=== PATIENT | male | born 1940 | race African-American/Black ===

== ENCOUNTER 2019-11-16 23:13 | Inpatient (IN) | payer OTHER ==
[~2019-11-16] VITALS: Ht 182.9 cm; Wt 86.7 kg
[2019-11-17] MEDS ORDERED: IPRATROPIUM BROMIDE (0.02%) 0.5MG/2.5ML NEB HHN STA (00:01)
[2019-11-17] MEDS ORDERED: ONDANSETRON HCL 4MG/2ML INJ IV STA (00:01)
[2019-11-17] MEDS ORDERED: ACETAMINOPHEN 325MG TABLET PO STA (00:01)
[2019-11-17] MEDS ORDERED: ALBUTEROL (0.083%) 2.5MG/3ML NEB HHN STA (00:01)
[2019-11-17] MEDS ORDERED: AZITHROMYCIN 500 MG in DEXT 5% WATER 250 ML IV ONE (00:15)
[2019-11-17] MEDS ORDERED: CEFTRIAXONE 1 G PREMIX 50 ML IV ONE (00:15)
[2019-11-17 00:33] LABS: BASOPHILS % 0.2 % (0.0-2.0); EOSINOPHILS % 0.5 % (0.0-5.0); HEMATOCRIT. 32.6 % (42.0-52.0); HEMOGLOBIN. 10.5 g/dL (14.0-18.0); LYMPHOCYTES % 10.1 % (20.0-50.0); MEAN CORPUSCULAR HEMOGLOBIN 30.9 pg (28.0-32.0); MEAN CORPUSCULAR VOLUME 96.2 fL (80.0-94.0); MEAN PLATELET VOLUME 10.3 fl (7.4-10.4); MONOCYTES % 6.5 % (2.0-8.0); NEUTROPHILS % 82.7 % (40.0-76.0); PLATELET 100 x1000/uL (130-400); RED BLOOD CELL COUNT 3.39 mill/uL (4.7-6.1); RED CELL DISTRIBUTION WIDTH 18.7 % (11.6-14.6)
[2019-11-17 00:37] LABS: CHLORIDE 103 mEq/L (98-107)
[2019-11-17 00:56] LABS: PROTHROMBIN TIME 10.7 sec (9.6-11.0)
[2019-11-17 01:21] LABS: BG BASE EXCESS 2.9 mmol/L (-2.0-2.0); BG CARBOXYHEMOGLOBIN 0.2 % (0.5-1.5); BG DEOXYHEMOGLOBIN 5.6 % (0.0-5.0); BG FRACTION INSPIRED OXYGEN 32; BG HCO3 ACT 29.7 mmol/L (22.0-26.0); BG OXYGEN SATURATION 94.4 % (92.0-98.5); BG OXYHEMOGLOBIN 94.2 % (94.0-97.0); BG PCO2 56.4 mmHg (35.0-45.0); BG PO2 76.6 mmHg (75.0-100.0); BG SAMPLE SITE RIGHT RADIAL; BG TOTAL HEMOGLOBIN 11.6 g/dL (12.0-18.0); BG VENT MODE NASAL CANNULA
[2019-11-17] MEDS ORDERED: ALBUTEROL 6.7GM HFA INHALER ORI PRN (03:45)
[2019-11-17] MEDS ORDERED: ONDANSETRON HCL 4MG/2ML INJ IV PRN (03:45)
[2019-11-17] MEDS ORDERED: GUAIFENESIN 200MG/10ML SUGAR FREE UDC PO PRN (03:45)
[2019-11-17] MEDS ORDERED: DIPHENHYDRAMINE 50MG/ML VIAL IV PRN (03:45)
[2019-11-17] MEDS ORDERED: CEFTRIAXONE 1 G PREMIX 50 ML IV SCH (03:45)
[2019-11-17] MEDS ORDERED: CLONIDINE 0.1MG TABLET PO PRN (03:45)
[2019-11-17] MEDS ORDERED: ZOLPIDEM TARTRATE 5MG TABLET PO PRN (03:45)
[2019-11-17] MEDS ORDERED: MAGNESIUM/ALUMINUM HYDROXIDE/SIMETHICONE 30ML UDC PO PRN (03:45)
[2019-11-17] MEDS ORDERED: ACETAMINOPHEN 325MG TABLET PO PRN ×2 (03:45)
[2019-11-17] MEDS ORDERED: DEXAMETHASONE 10 MG/ML VIAL IV SCH (09:00)
[2019-11-17] MEDS: FAMOTIDINE 20MG TABLET PO SCH (09:04)
[2019-11-17] MEDS: DEXAMETHASONE 4MG TABLET PO SCH (09:04)
[2019-11-17] MEDS: SODIUM CHLORIDE 0.9% INJ 3ML FLUSH IVF SCH ×2 (14:06→22:00)
[2019-11-17] MEDS ORDERED: DEXTROSE 50% WATER 50ML SYRINGE IV PRN (19:45)
[2019-11-17] MEDS ORDERED: CEFTRIAXONE 1,000 MG in DEXTROSE 5% WATER 50 ML IV SCH ×2 (20:30→23:30)
[2019-11-17] MEDS ORDERED: AZITHROMYCIN 500 MG in DEXT 5% WATER 250 ML IV SCH (21:00)
[2019-11-17 22:15] VITALS: BP 150/93
[2019-11-17] MEDS: BLOOD SUGAR DIAGNOSTIC STRIP TEST SCH (23:00)
[2019-11-18] VITALS: BP 143/90
[2019-11-18] MEDS ORDERED: AZITHROMYCIN 500 MG in DEXT 5% WATER 250 ML IV NR ×2
[2019-11-18 04:00] VITALS: BP 130/80
[2019-11-18] MEDS ORDERED: ATOR10TA69 PO (04:21)
[2019-11-18] MEDS ORDERED: POTA10TA2 PO (04:21)
[2019-11-18] MEDS ORDERED: AMLO2.5T45 PO (04:21)
[2019-11-18] MEDS ORDERED: CLOP75TA33 PO (04:21)
[2019-11-18] MEDS ORDERED: ISOS60TA4 PO (04:21)
[2019-11-18] MEDS ORDERED: ALLO300T2 PO (04:21)
[2019-11-18] MEDS ORDERED: FURO40TA5 MT (04:21)
[2019-11-18] MEDS ORDERED: CARV25TA47 PO (04:21)
[2019-11-18] MEDS: SODIUM CHLORIDE 0.9% INJ 3ML FLUSH IVF SCH ×3 (06:03→21:06)
[2019-11-18] MEDS: BLOOD SUGAR DIAGNOSTIC STRIP TEST SCH ×3 (06:49→21:02)
[2019-11-18] MEDS: INSULIN LISPRO 100 UNITS/ML SUBCUT SCH ×3 (06:50→21:03)
[2019-11-18 08:00] VITALS: BP 131/85
[2019-11-18] MEDS: DEXAMETHASONE 4MG TABLET PO SCH (09:27)
[2019-11-18] MEDS: FAMOTIDINE 20MG TABLET PO SCH (10:11)
[2019-11-18] MEDS ORDERED: IPRATROPIUM/ALBUTEROL 0.5-3(2.5)MG/3ML NEB HHN PRN (15:00)
[2019-11-18] MEDS ORDERED: POTASSIUM CHLORIDE 20MEQ TABLET SR PO SCH (15:15)
[2019-11-18] MEDS ORDERED: FUROSEMIDE 40MG/4ML VIAL IVP SCH (15:15)
[2019-11-18 16:00] VITALS: BP 141/81
[2019-11-18] MEDS ORDERED: BUDESONIDE 0.5MG/2ML NEB HHN SCH (16:00)
[2019-11-18] MEDS ORDERED: IPRATROPIUM/ALBUTEROL 0.5-3(2.5)MG/3ML NEB HHN SCH (18:00)
[2019-11-18 20:00] VITALS: BP 120/70
[2019-11-18] MEDS ORDERED: CARVEDILOL 6.25 MG TABLET PO SCH (21:00)
[2019-11-18] MEDS ORDERED: ATORVASTATIN CALCIUM 10MG TABLET PO SCH (21:00)
[2019-11-18 21:24] VITALS: BP 120/70
[2019-11-18] MEDS ORDERED: NITROGLYCERIN OINT 1GM/INCH UDPKT TD SCH (22:00)
[2019-11-19] MEDS ORDERED: AZITHROMYCIN 250 MG in DEXT 5% WATER 250 ML IV SCH (06:00)
[2019-11-19] MEDS ORDERED: CLOPIDOGREL 75MG TABLET PO SCH (09:00)
[2019-11-19] MEDS ORDERED: AMLODIPINE 2.5MG TABLET PO SCH (09:00)
== END 2019-11-18 22:26 | disposition short-term general hospital (02) | DRG 190 ==
LOC: ER 23:29 → 7WST 11-17 02:07 → ENRESERV 11-17 20:07 → 8WST 11-18 11:23
PROVIDERS: ADMIT Internal Medicine; ATTEND Internal Medicine
DX: J44.0 Chronic obstructive pulmonary disease with (acute) lower respiratory infection (principal); J18.9 Pneumonia, unspecified organism; J96.90 Respiratory failure, unspecified, unspecified whether with hypoxia or hypercapnia; I50.20 Unspecified systolic (congestive) heart failure; M10.9 Gout, unspecified; E11.9 Type 2 diabetes mellitus without complications; I11.0 Hypertensive heart disease with heart failure; Z20.828 Contact with and (suspected) exposure to other viral communicable diseases; J44.9 Chronic obstructive pulmonary disease, unspecified; Z86.73 Personal history of transient ischemic attack (TIA), and cerebral infarction without residual deficits; Z99.81 Dependence on supplemental oxygen
CPT/HCPCS: 36415; 36600; 71045; 80053; 82375; 82728; 82805; 82962; 83036; 83605; 83615; 84145; 84484; 85025; 86140; 87635; 93005; 94640; 99291; J0456; J0696; J1815; J1940; J2405; J7060; J8540

== ENCOUNTER 2022-10-26 23:54 | Inpatient (IN) | payer OTHER ==
[~2022-10-26] VITALS: Ht 167.6 cm; Wt 71.7 kg
[~2022-10-26 23:54] MED LIST: ALBU18HF2 IH; ALLO300T2 PO; AMLO5TAB88 PO; ASPI-1497 PO; CLOP75TA33 PO; FURO40TA5 MT; ISOS60TA76 PO; LIP40 PO; MED4 PO; POTA10TA2 PO
[2022-10-27] VITALS (13 sets, daily range): BP systolic 118–144; BP diastolic 75–96; PULSE 76–87; RESP 16–25; TEMP 97.3–98; O2SAT 98–100
[2022-10-27] MEDS ORDERED: IPRATROPIUM BROMIDE (0.02%) 0.5MG/2.5ML NEB HHN STA (00:44)
[2022-10-27] MEDS ORDERED: ALBUTEROL (0.083%) 2.5MG/3ML NEB HHN STA (00:44)
[2022-10-27] MEDS ORDERED: METHYLPREDNISOLONE SOD SUCC 125MG/2ML (ACT-O-VIAL) IV STA (00:44)
[2022-10-27] MEDS ORDERED: MAGNESIUM 2 G PREMIX 50 ML IV ONE (00:45)
[2022-10-27] MEDS ORDERED: CEFTRIAXONE 1GM PREMIX 50 ML IV ONE (02:00)
[2022-10-27] MEDS: AZITHROMYCIN 500 MG in DEXT 5% WATER 250 ML IV SCH ×2 (02:00→06:33)
[2022-10-27 02:22] LABS: BG BASE EXCESS 6.4 mmol/L (-2.0-2.0); BG CARBOXYHEMOGLOBIN 0.8 % (0.5-1.5); BG DEOXYHEMOGLOBIN 0.4 % (0.0-5.0); BG FRACTION INSPIRED OXYGEN 100; BG HCO3 ACT 33.4 mmol/L (22.0-26.0); BG METHEMOGLOBIN 0.3 % (0.0-1.5); BG OXYGEN SATURATION 99.6 % (92.0-98.5); BG OXYHEMOGLOBIN 98.5 % (94.0-97.0); BG PCO2 58.8 mmHg (35.0-45.0); BG PH 7.372 (7.350-7.450); BG PO2 240.6 mmHg (75.0-100.0); BG SAMPLE SITE RIGHT RADIAL; BG VENT MODE MASK - NRB
[2022-10-27 02:27] LABS: HEMATOCRIT. 33.9 % (42.0-52.0); HEMOGLOBIN. 10.7 g/dL (14.0-18.0); MEAN CORPUSCULAR HEMOGLOBIN 30.4 pg (28.0-32.0); MEAN CORPUSCULAR VOLUME 96.2 fL (80.0-94.0); RED BLOOD CELL COUNT 3.52 mill/uL (4.7-6.1); RED CELL DISTRIBUTION WIDTH 17.4 % (11.6-14.6)
[2022-10-27 02:32] LABS: CHLORIDE 105 mEq/L (98-107)
[2022-10-27] MEDS ORDERED: ASPIRIN 325MG EC TABLET PO NR (03:00)
[2022-10-27] MEDS ORDERED: FUROSEMIDE 40MG/4ML VIAL IVP NR (03:00)
[2022-10-27 03:04] LABS: PLATELET 118 x1000/uL (130-400)
[2022-10-27] MEDS ORDERED: IPRATROPIUM/ALBUTEROL 0.5-3(2.5)MG/3ML NEB HHN ONE (03:15)
[2022-10-27] MEDS ORDERED: CEFTRIAXONE 1GM PREMIX 50 ML IV NR (06:15)
[2022-10-27] MEDS ORDERED: ONDANSETRON HCL 4MG/2ML INJ IV PRN (08:45)
[2022-10-27] MEDS ORDERED: GUAIFENESIN 200MG/10ML SUGAR FREE UDC PO PRN (08:45)
[2022-10-27] MEDS ORDERED: DOCUSATE SODIUM 100MG CAPSULE PO PRN (08:45)
[2022-10-27] MEDS ORDERED: CLONIDINE 0.1MG TABLET PO PRN (08:45)
[2022-10-27] MEDS ORDERED: KETOROLAC 15MG/ML VIAL IV PRN ×2 (08:45→17:00)
[2022-10-27] MEDS ORDERED: ACETAMINOPHEN 325MG TABLET PO PRN ×2 (08:45)
[2022-10-27] MEDS ORDERED: NITROGLYCERIN 0.4MG TABLET SL SL PRN (08:45)
[2022-10-27] MEDS ORDERED: IPRATROPIUM/ALBUTEROL 0.5-3(2.5)MG/3ML NEB NEB PRN (08:45)
[2022-10-27] MEDS ORDERED: MAGNESIUM/ALUMINUM HYDROXIDE/SIMETHICONE 30ML UDC PO PRN (08:45)
[2022-10-27] MEDS ORDERED: FAMOTIDINE 20MG TABLET PO SCH (09:00)
[2022-10-27] MEDS ORDERED: ASPIRIN 325MG EC TABLET PO SCH (09:00)
[2022-10-27 09:15] LABS: PLATELET ESTIMATE SLIGHTLY DECREASED
[2022-10-27] MEDS: FAMOTIDINE 20MG TABLET PO SCH (09:45)
[2022-10-27] MEDS: FUROSEMIDE 20MG/2ML VIAL IVP SCH ×2 (09:45→21:19)
[2022-10-27] MEDS: ASCORBIC ACID 500 MG TABLET PO SCH ×2 (09:45→21:19)
[2022-10-27] MEDS: GUAIFENESIN 600MG ER TABLET PO SCH ×2 (09:45→21:19)
[2022-10-27] MEDS: ZINC SULFATE 220 MG ( 50 ) CAPSULE PO SCH (09:45)
[2022-10-27] MEDS ORDERED: LEVOFLOXACIN 500MG PREMIX 100 ML IV SCH (10:00)
[2022-10-27] MEDS: CLOPIDOGREL 75MG TABLET PO SCH (10:57)
[2022-10-27] MEDS: ENOXAPARIN 30MG/0.3ML SYR SUBCUT SCH (11:45)
[2022-10-27 12:26] LABS: T4 FREE 1.09 ng/dL (0.76-1.46)
[2022-10-27] MEDS: IPRATROPIUM/ALBUTEROL 0.5-3(2.5)MG/3ML NEB HHN SCH ×4 (12:45→20:48)
[2022-10-27] MEDS: METHYLPREDNISOLONE SOD SUCC 125MG VIAL IV SCH ×2 (14:08→21:20)
[2022-10-27 15:22] LABS: CREATINE KINASE 76 IU/L (39-308); CREATINE KINASE MB FRACTION < 1.0 ng/mL (0.5-3.6)
[2022-10-27] MEDS: BUDESONIDE 0.5MG/2ML NEB HHN SCH (16:43)
[2022-10-27] MEDS: SPIRONOLACTONE 25MG TABLET PO SCH (17:24)
[2022-10-27 19:02] LABS: PHOSPHORUS 3.6 mg/dL (2.5-4.9)
[2022-10-27] MEDS ORDERED: ZOLPIDEM TARTRATE 5MG TABLET PO PRN (21:00)
[2022-10-27] MEDS: ATORVASTATIN CALCIUM 40MG TABLET PO SCH (21:19)
[2022-10-28] VITALS (17 sets, daily range): BP systolic 116–150; BP diastolic 61–98; PULSE 78–95; RESP 6–24; TEMP 96.1–98; O2SAT 98–100
[2022-10-28] MEDS: IPRATROPIUM/ALBUTEROL 0.5-3(2.5)MG/3ML NEB HHN SCH ×6 (00:40→20:51)
[2022-10-28 00:46] LABS: CREATINE KINASE MB FRACTION 1.4 ng/mL (0.5-3.6)
[2022-10-28 05:27] LABS: HEMATOCRIT. 28.1 % (42.0-52.0); MEAN CORPUSCULAR HEMOGLOBIN 30.1 pg (28.0-32.0); MEAN CORPUSCULAR VOLUME 94.2 fL (80.0-94.0); MEAN PLATELET VOLUME 9.8 fl (7.4-10.4); PLATELET 107 x1000/uL (130-400); RED BLOOD CELL COUNT 2.98 mill/uL (4.7-6.1); RED CELL DISTRIBUTION WIDTH 17.2 % (11.6-14.6)
[2022-10-28] MEDS: SPIRONOLACTONE 25MG TABLET PO SCH (05:30)
[2022-10-28] MEDS: METHYLPREDNISOLONE SOD SUCC 125MG VIAL IV SCH (05:31)
[2022-10-28 05:34] LABS: CHLORIDE 102 mEq/L (98-107)
[2022-10-28 05:40] LABS: PHOSPHORUS 3.6 mg/dL (2.5-4.9)
[2022-10-28 07:34] LABS: PLATELET ESTIMATE NORMAL
[2022-10-28] MEDS: LEVOFLOXACIN 250MG PREMIX 50 ML IV SCH (08:44)
[2022-10-28] MEDS: ASPIRIN 81MG EC TABLET PO SCH (08:45)
[2022-10-28] MEDS: ASCORBIC ACID 500 MG TABLET PO SCH (08:45)
[2022-10-28] MEDS: CLOPIDOGREL 75MG TABLET PO SCH (08:45)
[2022-10-28] MEDS: GUAIFENESIN 600MG ER TABLET PO SCH (08:45)
[2022-10-28] MEDS: ZINC SULFATE 220 MG ( 50 ) CAPSULE PO SCH (08:45)
[2022-10-28] MEDS: ENOXAPARIN 30MG/0.3ML SYR SUBCUT SCH (08:45)
[2022-10-28] MEDS: FUROSEMIDE 40MG/4 ML UDC PO SCH (08:50)
[2022-10-28] MEDS: BUDESONIDE 0.5MG/2ML NEB HHN SCH ×2 (08:56→20:51)
[2022-10-28] MEDS ORDERED: AZITHROMYCIN 500 MG in DEXT 5% WATER 250 ML IV SCH (09:00)
[2022-10-28] MEDS ORDERED: AMLODIPINE 5MG TABLET PO SCH (09:00)
[2022-10-28 10:54] LABS: BG BASE EXCESS 1.3 mmol/L (-2.0-2.0); BG CARBOXYHEMOGLOBIN 0.3 % (0.5-1.5); BG DEOXYHEMOGLOBIN 2.2 % (0.0-5.0); BG FRACTION INSPIRED OXYGEN 34; BG HCO3 ACT 26.5 mmol/L (22.0-26.0); BG METHEMOGLOBIN 0.3 % (0.0-1.5); BG OXYGEN SATURATION 97.8 % (92.0-98.5); BG OXYHEMOGLOBIN 97.2 % (94.0-97.0); BG PCO2 44.1 mmHg (35.0-45.0); BG PH 7.396 (7.350-7.450); BG PO2 110.7 mmHg (75.0-100.0); BG SAMPLE SITE RIGHT BRACHIAL; BG TOTAL HEMOGLOBIN 10.1 g/dL (12.0-18.0); BG VENT MODE NASAL CANNULA
[2022-10-28 13:19] LABS: *AMPHETAMINES SCREEN URINE NEGATIVE (NEGATIVE); *BARBITURATES SCREEN URINE NEGATIVE (NEGATIVE); *BENZODIAZEPINES SCREEN URINE NEGATIVE (NEGATIVE); *COCAINE SCREEN URINE NEGATIVE (NEGATIVE); CANNABINOID URINE SCREEN NEGATIVE (NEGATIVE); METHADONE URINE SCREEN NEGATIVE (NEGATIVE); OPIATES URINE SCREEN NEGATIVE (NEGATIVE); PHENCYCLIDINE URINE SCREEN NEGATIVE (NEGATIVE)
[2022-10-28] MEDS ORDERED: ACETYLCYSTEINE 200MG/ML 20% VIAL 4ML PO SCH (21:00)
[2022-10-28] MEDS ORDERED: METHYLPREDNISOLONE SOD SUCC 40MG VIAL IV SCH (21:00)
[2022-10-29] VITALS (15 sets, daily range): BP systolic 112–146; BP diastolic 63–91; PULSE 77–94; RESP 15–24; TEMP 96.4–98; O2SAT 96–100
[2022-10-29] MEDS: IPRATROPIUM/ALBUTEROL 0.5-3(2.5)MG/3ML NEB HHN SCH ×6 (00:21→21:05)
[2022-10-29] MEDS: APIXABAN 2.5 MG TABLET PO SCH ×2 (00:35→10:30)
[2022-10-29] MEDS: ASCORBIC ACID 500 MG TABLET PO SCH ×3 (00:38→21:02)
[2022-10-29] MEDS: GUAIFENESIN 600MG ER TABLET PO SCH ×3 (00:38→20:56)
[2022-10-29] MEDS: ATORVASTATIN CALCIUM 40MG TABLET PO SCH ×2 (00:38→20:56)
[2022-10-29 05:42] LABS: HEMATOCRIT. 28.4 % (42.0-52.0); HEMOGLOBIN. 9.3 g/dL (14.0-18.0); MEAN CORPUSCULAR VOLUME 94.5 fL (80.0-94.0); MEAN PLATELET VOLUME 10.2 fl (7.4-10.4); PLATELET 101 x1000/uL (130-400); RED CELL DISTRIBUTION WIDTH 17.2 % (11.6-14.6)
[2022-10-29] MEDS: BUDESONIDE 0.5MG/2ML NEB HHN SCH ×2 (08:27→21:05)
[2022-10-29 08:48] LABS: BG BASE EXCESS 4.8 mmol/L (-2.0-2.0); BG CARBOXYHEMOGLOBIN 0.3 % (0.5-1.5); BG FRACTION INSPIRED OXYGEN 33; BG HCO3 ACT 30.4 mmol/L (22.0-26.0); BG METHEMOGLOBIN 0.3 % (0.0-1.5); BG OXYHEMOGLOBIN 98.4 % (94.0-97.0); BG PCO2 50.6 mmHg (35.0-45.0); BG PH 7.397 (7.350-7.450); BG PO2 189.8 mmHg (75.0-100.0); BG SAMPLE SITE RIGHT RADIAL; BG TOTAL HEMOGLOBIN 10.4 g/dL (12.0-18.0); BG VENT MODE NASAL CANNULA
[2022-10-29] MEDS ORDERED: SPIRONOLACTONE 25MG TABLET PO SCH (09:00)
[2022-10-29] MEDS: LEVOFLOXACIN 250MG PREMIX 50 ML IV SCH (10:24)
[2022-10-29] MEDS: ZINC SULFATE 220 MG ( 50 ) CAPSULE PO SCH (10:28)
[2022-10-29] MEDS: PREDNISONE 20MG TABLET PO SCH (10:28)
[2022-10-29] MEDS: FUROSEMIDE 40MG/4 ML UDC PO SCH (10:29)
[2022-10-29] MEDS: ASPIRIN 81MG EC TABLET PO SCH (10:30)
[2022-10-29] MEDS: CLOPIDOGREL 75MG TABLET PO SCH (10:30)
[2022-10-29] MEDS: FAMOTIDINE 20MG TABLET PO SCH (10:41)
[2022-10-29 17:17] LABS: PLATELET ESTIMATE SLIGHTLY DECREASED
[2022-10-30] VITALS (18 sets, daily range): BP systolic 122–155; BP diastolic 76–89; PULSE 73–89; RESP 18–23; TEMP 97.1–98.6; O2SAT 95–100
[2022-10-30] MEDS: IPRATROPIUM/ALBUTEROL 0.5-3(2.5)MG/3ML NEB HHN SCH ×6 (00:42→20:45)
[2022-10-30 07:26] LABS: HEMOGLOBIN. 9.8 g/dL (14.0-18.0); MEAN CORPUSCULAR VOLUME 95.3 fL (80.0-94.0); MEAN PLATELET VOLUME 10.7 fl (7.4-10.4); PLATELET 105 x1000/uL (130-400); RED BLOOD CELL COUNT 3.15 mill/uL (4.7-6.1); RED CELL DISTRIBUTION WIDTH 17.2 % (11.6-14.6)
[2022-10-30] MEDS: METOPROLOL SUCCINATE 50MG ER TABLET PO SCH (09:40)
[2022-10-30] MEDS: ASPIRIN 81MG EC TABLET PO SCH (09:40)
[2022-10-30] MEDS: FUROSEMIDE 40MG/4 ML UDC PO SCH (09:40)
[2022-10-30] MEDS: ASCORBIC ACID 500 MG TABLET PO SCH ×2 (09:40→21:45)
[2022-10-30] MEDS: LEVOFLOXACIN 250MG PREMIX 50 ML IV SCH (09:41)
[2022-10-30] MEDS: PREDNISONE 20MG TABLET PO SCH (09:41)
[2022-10-30] MEDS: ZINC SULFATE 220 MG ( 50 ) CAPSULE PO SCH (10:24)
[2022-10-30] MEDS: CLOPIDOGREL 75MG TABLET PO SCH (10:24)
[2022-10-30] MEDS: GUAIFENESIN 600MG ER TABLET PO SCH ×2 (10:24→21:45)
[2022-10-30 12:04] LABS: NUCLEATED RED BLOOD CELLS 1 /100 WBC; PLATELET ESTIMATE DECREASED
[2022-10-30] MEDS: BUDESONIDE 0.5MG/2ML NEB HHN SCH (16:48)
[2022-10-30] MEDS: ATORVASTATIN CALCIUM 40MG TABLET PO SCH (21:45)
[2022-10-31] VITALS (11 sets, daily range): BP systolic 104–129; BP diastolic 57–85; PULSE 67–77; RESP 16–25; TEMP 97.2–98.6; O2SAT 98–100
[2022-10-31] MEDS: IPRATROPIUM/ALBUTEROL 0.5-3(2.5)MG/3ML NEB HHN SCH ×3 (00:35→07:47)
[2022-10-31 07:54] LABS: HEMATOCRIT 30.7 % (42.0-52.0); MEAN CORPUSCULAR HEMOGLOBIN 30.8 pg (28.0-32.0); MEAN CORPUSCULAR VOLUME 94.5 fL (80.0-94.0); PLATELET 107 x1000/uL (130-400); RED BLOOD CELL COUNT 3.25 mill/uL (4.7-6.1)
[2022-10-31 08:28] LABS: PHOSPHORUS 2.5 mg/dL (2.5-4.9)
[2022-10-31] MEDS ORDERED: P20 MT (08:41)
[2022-10-31] MEDS ORDERED: LEVO250T74 MT (08:41)
[2022-10-31] MEDS: LEVOFLOXACIN 250MG PREMIX 50 ML IV SCH (09:00)
[2022-10-31] MEDS: ASCORBIC ACID 500 MG TABLET PO SCH (09:00)
[2022-10-31] MEDS: METOPROLOL SUCCINATE 50MG ER TABLET PO SCH (09:00)
[2022-10-31] MEDS: GUAIFENESIN 600MG ER TABLET PO SCH (09:15)
[2022-10-31] MEDS: FAMOTIDINE 20MG TABLET PO SCH (09:15)
[2022-10-31] MEDS: CLOPIDOGREL 75MG TABLET PO SCH (09:15)
[2022-10-31] MEDS: FUROSEMIDE 40MG/4 ML UDC PO SCH (09:15)
[2022-10-31] MEDS: ASPIRIN 81MG EC TABLET PO SCH (09:15)
[2022-10-31] MEDS: PREDNISONE 20MG TABLET PO SCH (09:16)
[2022-10-31] MEDS: ZINC SULFATE 220 MG ( 50 ) CAPSULE PO SCH (09:16)
== END 2022-10-31 20:29 | disposition home or self-care (01) | DRG 871 ==
LOC: ER 23:54 → MICUSO 10-27 06:19 → 5EST 10-27 08:43
PROVIDERS: ADMIT Internal Medicine; ATTEND Internal Medicine
PROC: 5A09357 Assistance with Respiratory Ventilation, Less than 24 Consecutive Hours, Continuous Positive Airway Pressure (ICD-10-PCS; principal; 2022-10-27)
DX: A41.9 Sepsis, unspecified organism (principal); I21.A1 Myocardial infarction type 2; I50.43 Acute on chronic combined systolic (congestive) and diastolic (congestive) heart failure; J96.22 Acute and chronic respiratory failure with hypercapnia; J96.21 Acute and chronic respiratory failure with hypoxia; J44.1 Chronic obstructive pulmonary disease with (acute) exacerbation; N17.9 Acute kidney failure, unspecified; I13.0 Hypertensive heart and chronic kidney disease with heart failure and stage 1 through stage 4 chronic kidney disease, or unspecified chronic kidney disease; E87.20 Acidosis, unspecified; D53.9 Nutritional anemia, unspecified; I25.5 Ischemic cardiomyopathy; N18.9 Chronic kidney disease, unspecified; R65.20 Severe sepsis without septic shock; N28.1 Cyst of kidney, acquired; F10.10 Alcohol abuse, uncomplicated; E83.52 Hypercalcemia; I25.10 Atherosclerotic heart disease of native coronary artery without angina pectoris; I49.1 Atrial premature depolarization; E78.5 Hyperlipidemia, unspecified; D69.6 Thrombocytopenia, unspecified; I48.91 Unspecified atrial fibrillation; I27.20 Pulmonary hypertension, unspecified; I25.2 Old myocardial infarction; Z79.01 Long term (current) use of anticoagulants; Z79.82 Long term (current) use of aspirin; Z79.899 Other long term (current) drug therapy; Z99.81 Dependence on supplemental oxygen
CPT/HCPCS: 36415; 36600; 71045; 76770; 80048; 80053; 80061; 80305; 82306; 82330; 82375; 82550; 82553; 82607; 82746; 82805; 83036; 83540; 83605; 83735; 83880; 83970; 84100; 84145; 84439; 84443; 84484; 85025; 85027; 87070; 93005; 93306; 93308; 93970; 94640; 94660; 99285; A6261; J0456; J0696; J1650; J1940; J1956; J2920; J2930; J3475; J7060; J7512; J7608; J7626